=== PATIENT | male | born 1955 | race Caucasian/White ===

== ENCOUNTER 2017-06-04 20:52 | Emergency (ER) | payer BC, MEDICARE ==
[~2017-06-04] VITALS: Ht 167.6 cm; Wt 60.8 kg
[~2017-06-04 20:52] MED LIST: ALPR.5 PO; BACL10 PO; CEFD300 PO; DIAZ5 PO; FENT100TP TOP; FENT75TP TOP; HYDMOR3S PR; LIDO5TO TOP; LIDO5TP TOP; LISI5 PO; OMNARIS INH; OXYC5; POTA10T PO; PROM25 IM
[2017-06-04] MEDS ORDERED: BACL10 PO (21:34)
[2017-06-04] MEDS ORDERED: DIAZ5 PO (21:35)
[2017-06-04] MEDS ORDERED: [UNRECOGNIZED DRUG - OTHER] PO (21:35)
[2017-06-04 21:36] LABS: Source, Urine Clean Catch
[2017-06-04] MEDS ORDERED: PROM25 PO (21:36)
[2017-06-04] MEDS ORDERED: CRANBERRY PO (21:36)
[2017-06-04] MEDS ORDERED: OXYC5 PO (21:36)
[2017-06-04] MEDS ORDERED: LIDOCAINE1 EACH TOP (21:37)
[2017-06-04 21:38] LABS: Bilirubin, Urine Neg (Neg); Blood, Urine 5+ (Neg); Glucose Qualitative, Urine Neg (Neg); Ketones, Urine 3+ (Neg); Leukocyte Esterase, Urine 2+ (Neg); Nitrite, Urine Neg (Neg); Protein, Urine 2+ (Neg); Urobilinogen, Urine NORM (Normal)
[2017-06-04 21:42] LABS: Appearance, Urine Hazy (Clear); Color, Urine Red (P-Yellow)
[2017-06-04 21:47] LABS: Bacteria Rare /hpf; Red Blood Cells, Urine TNTC /hpf (0-2); Squamous Epithelial Cells Rare /hpf (Few)
[2017-06-04 21:53] LABS: BASOPHILS ABSOLUTE AUTO 0.04 K/mm3 (0.00-0.23); BASOPHILS PERCENT AUTO 0 % (0-2); EOSINOPHILS ABSOLUTE AUTO 0.01 K/mm3 (0.00-0.68); EOSINOPHILS PERCENT AUTO 0 % (0-6); Hemoglobin 14.5 g/dL (13.5-17.5); IMMATURE GRAN ABSOLUTE AUTO 0.08 K/mm3 (0.00-0.10); IMMATURE GRAN PERCENT AUTO 1 % (0-1); LYMPHOCYTES ABSOLUTE AUTO 0.38 K/mm3 (0.84-5.20); LYMPHOCYTES PERCENT AUTO 2 % (21-46); MONOCYTES ABSOLUTE AUTO 0.87 K/mm3 (0.16-1.47); MONOCYTES PERCENT AUTO 5 % (4-13); Mean Corpuscular HGB 28.9 pg (26.0-34.0); Mean Corpuscular HGB Conc 33.7 g/dL (31.5-36.5); Mean Corpuscular Volume 86 fL (80-100); NEUTROPHILS PERCENT AUTO 92 % (41-73); Platelet Count 165 K/mm3 (150-400); RDW Coefficient Variation 12.5 % (11.7-14.2); RDW Standard Deviation 39.2 fL (35.1-46.3); Red Blood Cell Count 5.01 M/mm3 (4.30-5.90); White Blood Cell Count 17.38 K/mm3 (4.00-11.30)
[2017-06-04 22:11] LABS: Alanine Aminotransfer (ALT/SGP 25 U/L (12-78); Albumin, Blood 3.7 g/dL (3.4-5.0); Albumin/Globulin Ratio 1.1 (0.8-1.8); Alk Phos 58 U/L (50-136); Anion Gap 7 mmol/L (6-16); Aspartate Aminotrans (AST/SGOT 15 U/L (12-37); Blood Urea Nitrogen 15 mg/dL (8-24); Bun/Creatinine Ratio 19.6 (12.0-20.0); CO2, Blood 27 mmol/L (21-32); Calcium, Blood 8.4 mg/dL (8.5-10.1); Chloride, Blood 106 mmol/L (98-108); Creatinine, Blood 0.77 mg/dL (0.60-1.20); Globulin, Blood 3.3 g/dL (2.2-4.0); Glomerular Filtration Rate >60 (60-); Glucose, Blood 109 mg/dL (70-99); Potassium, Blood 3.7 mmol/L (3.5-5.5); Sodium, Blood 140 mmol/L (136-145)
[2017-06-04] MEDS ORDERED: LEVO750 PO (22:41)
[2017-06-04] MEDS ORDERED: LEVOFLOXAC500 MG/20 PO (22:49)
== END 2017-06-04 23:08 | disposition home or self-care (01) ==
LOC: ER 20:52
PROVIDERS: Emergency Medicine
DX: G89.18 Other acute postprocedural pain (principal); N50.89 Other specified disorders of the male genital organs; R31.9 Hematuria, unspecified; K21.9 Gastro-esophageal reflux disease without esophagitis; Z88.6 Allergy status to analgesic agent; Z88.1 Allergy status to other antibiotic agents; Z91.040 Latex allergy status; Z88.5 Allergy status to narcotic agent; Z88.8 Allergy status to other drugs, medicaments and biological substances; Z79.899 Other long term (current) drug therapy; Z87.442 Personal history of urinary calculi; Z87.891 Personal history of nicotine dependence
CPT/HCPCS: 36415; 80053; 81001; 82272; 85025; 87086; 96374; 99284; J0696

== ENCOUNTER 2017-06-05 18:17 | Inpatient (IN) | payer BC, MEDICARE ==
[~2017-06-05] VITALS: Ht 167.6 cm; Wt 63.5 kg
[~2017-06-05 18:17] MED LIST changes: +CRANBERRY PO; +LEVO750 PO; +LEVOFLOXAC500 MG/20 PO; +LIDOCAINE1 EACH TOP; +OXYC5 PO; +PROM25 PO; +[UNRECOGNIZED DRUG - OTHER] PO
[2017-06-05 19:44] LABS: Alanine Aminotransfer (ALT/SGP 48 U/L (12-78); Albumin, Blood 3.8 g/dL (3.4-5.0); Alk Phos 63 U/L (50-136); Anion Gap 11 mmol/L (6-16); Aspartate Aminotrans (AST/SGOT 43 U/L (12-37); Bilirubin, Total 1.9 mg/dL (0.1-1.0); Blood Urea Nitrogen 16 mg/dL (8-24); Bun/Creatinine Ratio 20.2 (12.0-20.0); CO2, Blood 20 mmol/L (21-32); Calcium, Blood 8.5 mg/dL (8.5-10.1); Chloride, Blood 103 mmol/L (98-108); Creatinine, Blood 0.79 mg/dL (0.60-1.20); Globulin, Blood 3.7 g/dL (2.2-4.0); Glomerular Filtration Rate >60 (60-); Glucose, Blood 136 mg/dL (70-99); Potassium, Blood 3.6 mmol/L (3.5-5.5); Sodium, Blood 134 mmol/L (136-145); Total Protein, Blood 7.5 g/dL (6.4-8.2)
[2017-06-05 19:50] LABS: BASOPHILS ABSOLUTE AUTO 0.03 K/mm3 (0.00-0.23); BASOPHILS PERCENT AUTO 0 % (0-2); EOSINOPHILS PERCENT AUTO 0 % (0-6); Hematocrit 43.8 % (37.0-53.0); IMMATURE GRAN ABSOLUTE AUTO 0.06 K/mm3 (0.00-0.10); IMMATURE GRAN PERCENT AUTO 1 % (0-1); LYMPHOCYTES ABSOLUTE AUTO 0.16 K/mm3 (0.84-5.20); LYMPHOCYTES PERCENT AUTO 2 % (21-46); MONOCYTES ABSOLUTE AUTO 0.45 K/mm3 (0.16-1.47); MONOCYTES PERCENT AUTO 4 % (4-13); Mean Corpuscular HGB 29.1 pg (26.0-34.0); Mean Corpuscular HGB Conc 34.2 g/dL (31.5-36.5); Mean Corpuscular Volume 85 fL (80-100); Mean Platelet Volume 10.7 fL (9.1-12.4); NEUTROPHILS ABSOLUTE AUTO 10.03 K/mm3 (1.96-9.15); NEUTROPHILS PERCENT AUTO 93 % (41-73); Platelet Count 149 K/mm3 (150-400); RDW Coefficient Variation 12.3 % (11.7-14.2); RDW Standard Deviation 38.3 fL (35.1-46.3); Red Blood Cell Count 5.16 M/mm3 (4.30-5.90); White Blood Cell Count 10.73 K/mm3 (4.00-11.30)
[2017-06-05 20:05] LABS: Source, Urine Clean Catch
[2017-06-05 20:14] LABS: Bilirubin, Urine Neg (Neg); Blood, Urine 5+ (Neg); Glucose Qualitative, Urine Neg (Neg); Ketones, Urine 4+ (Neg); Leukocyte Esterase, Urine 3+ (Neg); Nitrite, Urine Neg (Neg); Protein, Urine 3+ (Neg); Urobilinogen, Urine NORM (Normal)
[2017-06-05 20:35] LABS: Appearance, Urine Hazy (Clear); Color, Urine Amber (P-Yellow)
[2017-06-05 20:55] LABS: Red Blood Cells, Urine 25-50 /hpf (0-2); White Blood Cells, Urine 25-50 /hpf (0-5)
[2017-06-05 20:56] LABS: Squamous Epithelial Cells Rare /hpf (Few)
[2017-06-05 20:57] LABS: Bacteria Many /hpf; Mucus Light (0-Heavy)
[2017-06-06 05:34] LABS: BASOPHILS ABSOLUTE AUTO 0.01 K/mm3 (0.00-0.23); BASOPHILS PERCENT AUTO 0 % (0-2); EOSINOPHILS PERCENT AUTO 0 % (0-6); Hematocrit 39.8 % (37.0-53.0); Hemoglobin 13.5 g/dL (13.5-17.5); IMMATURE GRAN ABSOLUTE AUTO 0.03 K/mm3 (0.00-0.10); IMMATURE GRAN PERCENT AUTO 0 % (0-1); LYMPHOCYTES ABSOLUTE AUTO 0.28 K/mm3 (0.84-5.20); LYMPHOCYTES PERCENT AUTO 3 % (21-46); MONOCYTES ABSOLUTE AUTO 0.61 K/mm3 (0.16-1.47); MONOCYTES PERCENT AUTO 7 % (4-13); Mean Corpuscular HGB 29.1 pg (26.0-34.0); Mean Corpuscular HGB Conc 33.9 g/dL (31.5-36.5); Mean Corpuscular Volume 86 fL (80-100); Mean Platelet Volume 10.3 fL (9.1-12.4); NEUTROPHILS ABSOLUTE AUTO 7.82 K/mm3 (1.96-9.15); NEUTROPHILS PERCENT AUTO 89 % (41-73); Platelet Count 120 K/mm3 (150-400); RDW Coefficient Variation 12.5 % (11.7-14.2); Red Blood Cell Count 4.64 M/mm3 (4.30-5.90); White Blood Cell Count 8.75 K/mm3 (4.00-11.30)
[2017-06-06 06:01] LABS: Alanine Aminotransfer (ALT/SGP 43 U/L (12-78); Albumin, Blood 3.1 g/dL (3.4-5.0); Albumin/Globulin Ratio 0.9 (0.8-1.8); Alk Phos 53 U/L (50-136); Anion Gap 8 mmol/L (6-16); Aspartate Aminotrans (AST/SGOT 32 U/L (12-37); Bilirubin, Total 1.5 mg/dL (0.1-1.0); Blood Urea Nitrogen 16 mg/dL (8-24); Bun/Creatinine Ratio 20.2 (12.0-20.0); CO2, Blood 25 mmol/L (21-32); Calcium, Blood 8.1 mg/dL (8.5-10.1); Chloride, Blood 105 mmol/L (98-108); Creatinine, Blood 0.79 mg/dL (0.60-1.20); Globulin, Blood 3.4 g/dL (2.2-4.0); Glomerular Filtration Rate >60 (60-); Glucose, Blood 131 mg/dL (70-99); Potassium, Blood 3.9 mmol/L (3.5-5.5); Sodium, Blood 138 mmol/L (136-145); Total Protein, Blood 6.5 g/dL (6.4-8.2)
[2017-06-08 05:31] LABS: BASOPHILS ABSOLUTE AUTO 0.01 K/mm3 (0.00-0.23); BASOPHILS PERCENT AUTO 0 % (0-2); EOSINOPHILS ABSOLUTE AUTO 0.04 K/mm3 (0.00-0.68); EOSINOPHILS PERCENT AUTO 1 % (0-6); Hematocrit 40.6 % (37.0-53.0); Hemoglobin 13.9 g/dL (13.5-17.5); IMMATURE GRAN PERCENT AUTO 0 % (0-1); LYMPHOCYTES ABSOLUTE AUTO 0.76 K/mm3 (0.84-5.20); LYMPHOCYTES PERCENT AUTO 16 % (21-46); MONOCYTES ABSOLUTE AUTO 0.78 K/mm3 (0.16-1.47); MONOCYTES PERCENT AUTO 16 % (4-13); Mean Corpuscular HGB Conc 34.2 g/dL (31.5-36.5); Mean Corpuscular Volume 85 fL (80-100); Mean Platelet Volume 10.4 fL (9.1-12.4); NEUTROPHILS ABSOLUTE AUTO 3.18 K/mm3 (1.96-9.15); NEUTROPHILS PERCENT AUTO 67 % (41-73); Platelet Count 154 K/mm3 (150-400); RDW Coefficient Variation 12.3 % (11.7-14.2); RDW Standard Deviation 37.7 fL (35.1-46.3); White Blood Cell Count 4.77 K/mm3 (4.00-11.30)
[2017-06-08 06:38] LABS: Alanine Aminotransfer (ALT/SGP 34 U/L (12-78); Albumin, Blood 3.1 g/dL (3.4-5.0); Albumin/Globulin Ratio 0.9 (0.8-1.8); Alk Phos 54 U/L (50-136); Anion Gap 9 mmol/L (6-16); Aspartate Aminotrans (AST/SGOT 20 U/L (12-37); Bilirubin, Total 0.8 mg/dL (0.1-1.0); Blood Urea Nitrogen 11 mg/dL (8-24); Bun/Creatinine Ratio 14.6 (12.0-20.0); CO2, Blood 27 mmol/L (21-32); Calcium, Blood 8.4 mg/dL (8.5-10.1); Chloride, Blood 104 mmol/L (98-108); Creatinine, Blood 0.75 mg/dL (0.60-1.20); Globulin, Blood 3.5 g/dL (2.2-4.0); Glomerular Filtration Rate >60 (60-); Glucose, Blood 90 mg/dL (70-99); Potassium, Blood 3.4 mmol/L (3.5-5.5); Sodium, Blood 140 mmol/L (136-145); Total Protein, Blood 6.6 g/dL (6.4-8.2)
[2017-06-08] MEDS ORDERED: CLOBET30L TOP (12:55)
[2017-06-08] MEDS ORDERED: MUPI1NAS (12:56)
[2017-06-08] MEDS ORDERED: NITR100 PO (12:57)
[2017-06-08] MEDS ORDERED: Pyridium200 MG PO (12:58)
== END 2017-06-08 14:05 | disposition home or self-care (01) | DRG 690 ==
LOC: ER 18:17 → MEDS 18:18
PROVIDERS: Emergency Medicine; Internal Medicine
PROC: 3E0234Z Introduction of Serum, Toxoid and Vaccine into Muscle, Percutaneous Approach (ICD-10-PCS; principal; 2017-06-08)
DX: N39.0 Urinary tract infection, site not specified (principal); B00.1 Herpesviral vesicular dermatitis; I10 Essential (primary) hypertension; K62.89 Other specified diseases of anus and rectum; N40.0 Benign prostatic hyperplasia without lower urinary tract symptoms; T78.49XA Other allergy, initial encounter; M81.0 Age-related osteoporosis without current pathological fracture; M79.7 Fibromyalgia; Z23 Encounter for immunization
CPT/HCPCS: 36415; 71046; 74176; 80053; 81001; 83605; 85025; 85049; 87040; 87077; 87086; 87186; 96365; 99285; J0696; J1170; J1650; J2405; J7030

== ENCOUNTER 2017-06-16 08:23 | Day surgery (SDC) | payer BC, MEDICARE ==
[~2017-06-16 08:23] MED LIST changes: +CLOBET30L TOP; +MUPI1NAS; +NITR100 PO; +Pyridium200 MG PO
[2017-06-17] MEDS ORDERED: GENTAMICIN IV (16:19)
== END 2017-06-16 12:00 | disposition home or self-care (01) ==
LOC: ATC 08:23
DX: R30.0 Dysuria (principal); M19.90 Unspecified osteoarthritis, unspecified site; M81.0 Age-related osteoporosis without current pathological fracture; M79.7 Fibromyalgia; Z79.899 Other long term (current) drug therapy; Z87.442 Personal history of urinary calculi; Z88.8 Allergy status to other drugs, medicaments and biological substances; Z88.1 Allergy status to other antibiotic agents; Z88.6 Allergy status to analgesic agent; Z91.040 Latex allergy status
CPT/HCPCS: 96365; J1580

== ENCOUNTER 2017-06-17 00:12 | Day surgery (SDC) | payer BC, MEDICARE ==
[2017-06-17] MEDS ORDERED: GENTAMICIN IV (16:19)
[2017-06-17 16:53] LABS: Anion Gap 7 mmol/L (6-16); Blood Urea Nitrogen 12 mg/dL (8-24); Bun/Creatinine Ratio 14.8 (12.0-20.0); CO2, Blood 29 mmol/L (21-32); Chloride, Blood 103 mmol/L (98-108); Creatinine, Blood 0.81 mg/dL (0.60-1.20); Glomerular Filtration Rate >60 (60-); Glucose, Blood 82 mg/dL (70-99); Sodium, Blood 139 mmol/L (136-145)
== END 2017-06-17 16:50 | disposition home or self-care (01) ==
LOC: ATC 00:12
PROVIDERS: Urology
DX: N39.0 Urinary tract infection, site not specified (principal); K62.89 Other specified diseases of anus and rectum; M79.7 Fibromyalgia
CPT/HCPCS: 36415; 80048; 96365; J1580

== ENCOUNTER 2017-06-18 02:44 | Day surgery (SDC) | payer BC, MEDICARE ==
[~2017-06-18 02:44] MED LIST changes: +GENTAMICIN IV
[2017-06-18 15:47] LABS: Gentamicin, Random <0.2 ug/Ml
== END 2017-06-18 17:00 | disposition home or self-care (01) ==
LOC: ATC 02:44
PROVIDERS: Urology
DX: N39.0 Urinary tract infection, site not specified (principal); M79.7 Fibromyalgia; K62.89 Other specified diseases of anus and rectum
CPT/HCPCS: 80170; 82565; 96365; J1580

== ENCOUNTER 2017-06-19 02:05 | Day surgery (SDC) | payer BC, MEDICARE | END 2017-06-19 15:34 | disposition home or self-care (01) | LOC: ATC 02:05 | DX: N39.0 Urinary tract infection, site not specified (principal); M79.7 Fibromyalgia; Z87.442 Personal history of urinary calculi | CPT/HCPCS: 96365; J1580 ==

== ENCOUNTER 2017-06-20 00:04 | Day surgery (SDC) | payer BC, MEDICARE ==
[2017-06-20 09:33] LABS: Anion Gap 5 mmol/L (6-16); Blood Urea Nitrogen 10 mg/dL (8-24); Bun/Creatinine Ratio 12.7 (12.0-20.0); CO2, Blood 30 mmol/L (21-32); Calcium, Blood 8.3 mg/dL (8.5-10.1); Chloride, Blood 106 mmol/L (98-108); Creatinine, Blood 0.79 mg/dL (0.60-1.20); Glomerular Filtration Rate >60 (60-); Glucose, Blood 80 mg/dL (70-99); Potassium, Blood 4.4 mmol/L (3.5-5.5); Sodium, Blood 141 mmol/L (136-145)
== END 2017-06-20 08:44 | disposition home or self-care (01) ==
LOC: ATC 00:04
PROVIDERS: Urology
DX: N39.0 Urinary tract infection, site not specified (principal); M79.7 Fibromyalgia; Z87.442 Personal history of urinary calculi
CPT/HCPCS: 80048; 96365; J1580

== ENCOUNTER → 2017-08-24 | Outpatient (CLI) | payer BC, MEDICARE ==
[2017-08-24 10:08] LABS: Bilirubin, Urine Neg (Neg); Blood, Urine Neg (Neg); Glucose Qualitative, Urine Neg (Neg); Ketones, Urine Neg (Neg); Leukocyte Esterase, Urine 1+ (Neg); Nitrite, Urine Neg (Neg); Protein, Urine Neg (Neg); Specific Gravity, Urine 1.025 (1.003-1.022); Urobilinogen, Urine NORM (Normal)
[2017-08-24 10:22] LABS: Appearance, Urine Hazy (Clear); Color, Urine Yellow (P-Yellow)
[2017-08-24 10:24] LABS: Amorphous Mod (0-Heavy); Bacteria Mod /hpf; Mucus Light (0-Heavy); Red Blood Cells, Urine 0-2 /hpf (0-2); Squamous Epithelial Cells Few /hpf (Few)
[2017-08-24 10:25] LABS: Calcium Oxalate Crystals Few /hpf
== END | disposition home or self-care (01) ==
LOC: LAB SHORT 06:15 → OLS 06:15
PROVIDERS: Urology
DX: R30.0 Dysuria (principal)
CPT/HCPCS: 81001; 87086

== ENCOUNTER 2019-09-05 11:06 | Day surgery (SDC) | payer BC, MEDICARE ==
[~2019-09-05] VITALS: Ht 167.6 cm; Wt 62.9 kg
[2019-09-05] MEDS ORDERED: CLON.5 (11:59)
== END 2019-09-05 13:14 | disposition home or self-care (01) ==
LOC: ORSCSDS 11:06
PROVIDERS: Internal Medicine Gastroenterology
PROC: 0DBK8ZX Excision of Ascending Colon, Via Natural or Artificial Opening Endoscopic, Diagnostic (ICD-10-PCS; principal; 2019-09-05 12:30)
PROC: 0DB78ZX Excision of Stomach, Pylorus, Via Natural or Artificial Opening Endoscopic, Diagnostic (ICD-10-PCS; principal; 2019-09-05 12:30)
PROC: 0DBM8ZX Excision of Descending Colon, Via Natural or Artificial Opening Endoscopic, Diagnostic (ICD-10-PCS; principal; 2019-09-05 12:30)
PROC: 0D758ZZ Dilation of Esophagus, Via Natural or Artificial Opening Endoscopic (ICD-10-PCS; principal; 2019-09-05 12:30)
PROC: 0DB98ZX Excision of Duodenum, Via Natural or Artificial Opening Endoscopic, Diagnostic (ICD-10-PCS; principal; 2019-09-05 12:30)
PROC: 0DBL8ZX Excision of Transverse Colon, Via Natural or Artificial Opening Endoscopic, Diagnostic (ICD-10-PCS; principal; 2019-09-05 12:30)
DX: R19.4 Change in bowel habit (principal); R13.10 Dysphagia, unspecified; D12.2 Benign neoplasm of ascending colon; D12.3 Benign neoplasm of transverse colon; D12.4 Benign neoplasm of descending colon; K29.80 Duodenitis without bleeding; K21.9 Gastro-esophageal reflux disease without esophagitis; K22.2 Esophageal obstruction; K64.1 Second degree hemorrhoids; Z80.0 Family history of malignant neoplasm of digestive organs; Z87.891 Personal history of nicotine dependence; Z79.899 Other long term (current) drug therapy
CPT/HCPCS: 88305; 88342; J2704; J7120

== ENCOUNTER 2020-05-10 13:09 | Inpatient (IN) | payer MEDICARE, OTHER ==
[~2020-05-10] VITALS: Ht 167.6 cm; Wt 63.0 kg
[~2020-05-10 13:09] MED LIST changes: +CLON.5 PO
[2020-05-10] MEDS ORDERED: BACL10 PO (18:06)
[2020-05-10] MEDS ORDERED: MELO7.5 PO (18:07)
[2020-05-10] MEDS ORDERED: DILAUDID 00.5 MG/0.2 PO (18:09)
[2020-05-11 00:04] LABS: Source, Urine Catheter
[2020-05-11 00:06] LABS: Bilirubin, Urine Neg (Neg); Blood, Urine 1+ (Neg); Glucose Qualitative, Urine 1+ (Neg); Ketones, Urine Neg (Neg); Leukocyte Esterase, Urine Neg (Neg); Nitrite, Urine Neg (Neg); Protein, Urine Neg (Neg); Urobilinogen, Urine NORM (Normal)
[2020-05-11 00:11] LABS: Appearance, Urine Clear (Clear); Color, Urine Yellow (P-Yellow)
[2020-05-11 00:13] LABS: Amorphous Light (0-Heavy); Bacteria Few /hpf; Red Blood Cells, Urine 0-2 /hpf (0-2); Squamous Epithelial Cells Not Seen /hpf (Few); White Blood Cells, Urine 0-2 /hpf (0-5)
[2020-05-11 00:17] LABS: BASOPHILS ABSOLUTE AUTO 0.01 K/mm3 (0.00-0.23); BASOPHILS PERCENT AUTO 0 % (0-2); EOSINOPHILS ABSOLUTE AUTO 0.01 K/mm3 (0.00-0.68); EOSINOPHILS PERCENT AUTO 0 % (0-6); Hematocrit 44.6 % (37.0-53.0); Hemoglobin 15.2 g/dL (13.5-17.5); IMMATURE GRAN ABSOLUTE AUTO 0.05 K/mm3 (0.00-0.10); IMMATURE GRAN PERCENT AUTO 0 % (0-1); LYMPHOCYTES ABSOLUTE AUTO 0.57 K/mm3 (0.84-5.20); LYMPHOCYTES PERCENT AUTO 4 % (21-46); MONOCYTES ABSOLUTE AUTO 0.86 K/mm3 (0.16-1.47); MONOCYTES PERCENT AUTO 6 % (4-13); Mean Corpuscular HGB 29.5 pg (26.0-34.0); Mean Corpuscular HGB Conc 34.1 g/dL (31.5-36.5); Mean Corpuscular Volume 87 fL (80-100); Mean Platelet Volume 10.1 fL (9.1-12.4); NEUTROPHILS PERCENT AUTO 89 % (41-73); Platelet Count 186 K/mm3 (150-400); RDW Coefficient Variation 12.3 % (11.7-14.2); RDW Standard Deviation 39.2 fL (35.1-46.3); Red Blood Cell Count 5.15 M/mm3 (4.30-5.90)
[2020-05-11 00:33] LABS: Anion Gap 5 mmol/L (6-16); Blood Urea Nitrogen 21 mg/dL (8-24); Bun/Creatinine Ratio 23.8 (12.0-20.0); CO2, Blood 28 mmol/L (21-32); Calcium, Blood 9.3 mg/dL (8.5-10.1); Chloride, Blood 107 mmol/L (98-108); Creatinine, Blood 0.88 mg/dL (0.60-1.20); Glomerular Filtration Rate >60 (60-); Glucose, Blood 123 mg/dL (70-99); Potassium, Blood 3.9 mmol/L (3.5-5.5); Sodium, Blood 140 mmol/L (136-145)
[2020-05-11 00:44] LABS: Influenza A, PCR NEGATIVE (NEGATIVE); Influenza B, PCR NEGATIVE (NEGATIVE); Resp Syncytial Virus, PCR NEGATIVE (NEGATIVE); SARS-Cov-2 (COVID-19) PCR, MMC NEGATIVE (NEGATIVE)
--- NOTE | 2020-05-11 07:16 | NUR ---
SHIFT SUMMARY S/P R FEMORAL NECK FX, A/O X4, VSS, TOLERATING PO, NPO SINCE MIDNIGHT FOR SURGEY, CONSULT CALLED IN FROM ED, PAIN MANAGED PER EMAR, PT HAS HX OF CHRONIC PAIN AND REPORTS MANAGMENT IS DOING WELL, SELF CATHS AT HOME, HUMPHRIES PLACED PER ORDER, SPECIMEN SENT TO LAB PER PROTOCOL, ICE IN PLACE, PT REPORTS ICE HELPS AND IS MANAGING PLACEMENT. CALL LIGHT IN REACH, REPORT GIVEN TO DAY RN.
--- NOTE | 2020-05-11 15:00 | NUR ---
PT TAKEN TO DAY SURGERY BY ARELIS ROA.
--- NOTE | 2020-05-11 18:10 | NUR ---
PT ARRIVED TO HIS ROOM AT 1742. PT REPORTS PAIN IS MINIMAL. VSS. PT'S BROUGHT ENSURE FOR HIM. VSS. WILL CONTINUE TO MONITOR.
--- NOTE | 2020-05-11 18:13 | NUR ---
SHIFT SUMMARY PT HAD R HIP REPAIR WITH DR. THOMPSON TODAY. PAIN MANAGED WITH IV PAIN MEDICATION, PT DOES REPORT IMPROVED PAIN CONTROL POST-OP. PT'S WAS AT BEDSIDE FOR SUPPORT. VSS. WILL MONITOR UNTIL REPORT TO ONCOMING RN.
--- NOTE | 2020-05-12 03:36 | NUR ---
SHIFT SUMMARY S/P R FEMORAL NECK FX PINNING, A/O X4, VSS, TOLERATING PO, NO BM THIS SHIFT, AMBULATING WELL, PAIN WELL CONTROLLED, WILL START TRANSITIONING OVER TO ORALS W/ NEXT DOSE. VOIDING WELL W/ HUMPHRIES. CALL LIGHT IN REACH, WILL CONTINUE TO MONITOR AND REPORT TO ONCOMING DAY RN.
--- NOTE | 2020-05-12 07:55 | NUR ---
JUDITH HERE TO SEE PT.
--- NOTE | 2020-05-12 16:51 | NUR ---
SHIFT SUMMARY PT TOLERATING HIS DIET THIS AFTERNOON. PT BEEN ASSISTED WITH ADL'S PRN. PT BEEN UP WITH ASSIST IN ROOM. PT WORKED WITH THERAPY TODAY. PT WITH INCREASED PAIN AFTER TAKING NAP TODAY. PT BEEN MED PRN PAIN. DISCUSSED PAIN MGMT WITH PT. CALL LIGHT IN REACH PT USING WELL.
--- NOTE | 2020-05-12 19:12 | NUR ---
PT BEEN MED FOR PAIN. PT ON PHONE. REPORT BEEN GIVEN TO MANOLO RN.
--- NOTE | 2020-05-13 03:51 | NUR ---
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 DRESSING TO R. HIP C/D/I. REPORTS 7-9 PAIN, MEDICATED X3 PER EMAR. HUMPHRIES PATENT AND DRAINING TO GRAVITY. NO ACUTE CHANGES AT THIS TIME. BED IN LOWEST POSITION WITH CALL LIGHT IN REACH. WILL CONTINUE TO MONITOR AND REPORT TO ONCOMING RN.
--- NOTE | 2020-05-13 09:45 | NUR ---
DR DAVID HERE TO SEE PT.
--- NOTE | 2020-05-13 17:45 | NUR ---
SHIFT SUMMARY PT TOLERATING HIS DIET TODAY. PT WORKED WITH THERAPY TODAY. DR DAVID TO SEE PT EARLIER TODAY, REPORTED MAY LEAVE CATHETER IN PLACE PT SELF CATH'S AT HOME. PT WORKED ON PAIN MANAGEMENT TODAY, REPORTS FEELING THAT HE MAY BE ABLE TO GO HOME TOMMORROW. PT BEEN ASSISTED WITH ADL'S PRN. PT BEEN UP TO CHAIR AND TOOK SHORT WALK THIS EVENING. PT BEEN ON PHONE OFF AND ON T/O DAY.
--- NOTE | 2020-05-14 07:18 | NUR ---
SHIFT SUMMARY POD3 R HIP SCREW FIXATION, A/O X4, VSS, TOLERATING LIQUID DIET, NOT ADVANCING TO REGULAR DUE TO DISMOTILITY OF ESOPHAGUS, VOIDING IN HUMPHRIES DUE TO CHRONIC BLADDER/PROSTATE HX. BOWEL CARE IN PLACE TO ENCOURAGE BM. CALL LIGHT IN REACH, REPORT GIVEN TO DAY RN.
[2020-05-14] MEDS ORDERED: OXAYDO5 M1 PO (12:39)
[2020-05-14] MEDS ORDERED: XARELTO20 MG PO (12:42)
[2020-05-14] MEDS ORDERED: MIRALAX17 GM PO (12:42)
--- NOTE | 2020-05-14 14:21 | NUR ---
DISCHARGE: PACKET PRINTED AND PT EDUCATED. PT GIVEN SCRIPT AND EXTRA AQUACEL DRESSINGS. PER DR. DAVID, LEAVE HUMPHRIES IN UPON DISCHARGE. HUMPHRIES DRAINED. PT LEFT UNIT AT ABOUT 1345 VIA WHEELCHAIR WITH KATIE MAURICIO.
== END 2020-05-14 13:45 | disposition home health service (06) | DRG 482 ==
LOC: ER 13:09 → SURS 17:53 → ER 21:30 → SURS 22:10
PROVIDERS: Internal Medicine; Orthopaedic Surgery; ADMIT Internal Medicine
PROC: 0QS634Z Reposition Right Upper Femur with Internal Fixation Device, Percutaneous Approach (ICD-10-PCS; principal; 2020-05-11 16:00)
DX: S72.011A Unspecified intracapsular fracture of right femur, initial encounter for closed fracture (principal); Y92.9 Unspecified place or not applicable; Y99.9 Unspecified external cause status; N40.0 Benign prostatic hyperplasia without lower urinary tract symptoms; G89.29 Other chronic pain; W19.XXXA Unspecified fall, initial encounter; K21.9 Gastro-esophageal reflux disease without esophagitis
CPT/HCPCS: 0241U; 36415; 51701; 72170; 72192; 73502; 80048; 81001; 85025; 85730; 93005; 93010; 96374; 96375; 97110; 97116; 97162; 97530; 99285-25; A9270; C1713; C1769; J0690; J1170; J2250; J2405; J2704; J2765; J3010; J7120; J7512

== ENCOUNTER → 2020-12-09 | Outpatient (CLI) | payer MEDICARE, OTHER ==
[~2020-12-09] MED LIST changes: +DILAUDID 00.5 MG/0.2 PO; +MELO7.5 PO; +MIRALAX17 GM PO; +OXAYDO5 M1 PO; +XARELTO20 MG PO
== END | disposition home or self-care (01) ==
LOC: LAB SHORT 09:22 → EDSTATUS 12-10 09:38
DX: R15.9 Full incontinence of feces (principal)
CPT/HCPCS: 87077; 87081; 87186

== ENCOUNTER → 2021-05-22 | Outpatient (CLI) | payer MEDICARE, OTHER ==
[2021-05-22 14:39] LABS: Source, Urine Clean Catch
[2021-05-22 15:56] LABS: Bilirubin, Urine Neg (Neg); Blood, Urine 1+ (Neg); Glucose Qualitative, Urine Neg (Neg); Ketones, Urine Neg (Neg); Leukocyte Esterase, Urine 3+ (Neg); Nitrite, Urine Neg (Neg); Protein, Urine 2+ (Neg); Specific Gravity, Urine 1.015 (1.003-1.022); Urobilinogen, Urine NORM (Normal); pH, Urine 6.5 (5.0-8.0)
[2021-05-22 16:06] LABS: Appearance, Urine Cloudy (Clear); Color, Urine Pale Yellow (P-Yellow)
[2021-05-22 16:07] LABS: Bacteria Mod /hpf; Squamous Epithelial Cells Rare /hpf (Few); Yeast/Fungi Urine Few /hpf
== END ==
LOC: LAB SHORT 14:37 → LAB FUT 05-22 14:10
PROVIDERS: Urology
DX: N39.0 Urinary tract infection, site not specified (principal)
CPT/HCPCS: 81001; 87086

== ENCOUNTER → 2022-06-10 | Outpatient (CLI) | payer MEDICARE, OTHER | END | disposition home or self-care (01) | LOC: LAB SHORT 12:00 | DX: L08.9 Local infection of the skin and subcutaneous tissue, unspecified (principal); L81.4 Other melanin hyperpigmentation; L82.1 Other seborrheic keratosis; D22.62 Melanocytic nevi of left upper limb, including shoulder; D22.39 Melanocytic nevi of other parts of face; D22.5 Melanocytic nevi of trunk; D22.61 Melanocytic nevi of right upper limb, including shoulder; L71.8 Other rosacea; L57.0 Actinic keratosis; L21.8 Other seborrheic dermatitis; L29.8 Other pruritus | CPT/HCPCS: 87070; 87205 ==

== ENCOUNTER → 2024-09-17 | Outpatient (CLI) | payer MEDICARE, OTHER | END | disposition home or self-care (01) | LOC: LAB 07:35 → LAB SHORT 07:35 → LAB FUT 08-14 12:30 | DX: N20.0 Calculus of kidney (principal) | CPT/HCPCS: 81050 ==